=== PATIENT | female | born 1965 | race Caucasian/White ===

== ENCOUNTER 2019-10-22 10:26 | Day surgery (SDC) | payer OTHER ==
[~2019-10-22] VITALS: Ht 175.3 cm; Wt 76.7 kg
[~2019-10-22 10:26] MED LIST: CETI10CH PO; COQ-100C5 PO; MAGN200T PO; MONT10TA4 PO; NS 1,000 ML IV ONE; OMEP1CAP73 PO; ROSU40TA4 PO; SERT-138 PO; SM HTAB3 PO
[2019-10-22] MEDS ORDERED: propofoL 200 MG/20 ML VIAL As Ordered ONE ×2 (12:05→12:13)
[2019-10-22] MEDS ORDERED: LIDOCAINE 2% INJ 100 MG/5 ML SDV (FOR ANES.) As Ordered ONE ×2 (12:05→12:20)
--- NOTE | 2019-10-22 12:26 | ROOR ---
Patient Name: Jessenia Baker Procedure Date: 10/22/2019 12:03 PM Date of : 1965 Age: 54 Room: [facility] Gender: Female Note Status: Finalized Procedure: Total Colonoscopy to Cecum Indications: Colon cancer screening in patient at increased risk: Colorectal cancer in mother, Last colonoscopy: 2014 Providers: Jose Camarillo MD Referring MD: Bladimir Keller Do, LISS LEIJA MD Requesting Provider: Medicines: Monitored Anesthesia Care Complications: No immediate complications. Procedure: Pre-Anesthesia Assessment: - The heart rate, respiratory rate, oxygen saturations, blood pressure, adequacy of pulmonary ventilation, and response to care were monitored throughout the procedure. The Colonoscope was introduced through the anus and advanced to the cecum, identified by appendiceal orifice and ileocecal valve. The colonoscopy was performed without difficulty. The patient tolerated the procedure well. The quality of the bowel preparation was excellent. Findings: The perianal and digital rectal examinations were normal. Non-bleeding internal hemorrhoids were found during retroflexion. The hemorrhoids were small and Grade I (internal hemorrhoids that do not prolapse). Scattered small-mouthed diverticula were found in the recto-sigmoid colon, sigmoid colon and descending colon. The exam was otherwise without abnormality on direct and retroflexion views. Impression: - Non-bleeding internal hemorrhoids. - Diverticulosis in the recto-sigmoid colon, in the sigmoid colon and in the descending colon. - The examination was otherwise normal on direct and retroflexion views. - No specimens collected. - The exam was otherwise normal to the cecum. Recommendation: - Patient has a contact number available for emergencies. The signs and symptoms of potential delayed complications were discussed with the patient. Return to normal activities tomorrow. Written discharge instructions were provided to the patient. - High fiber diet. - Discharge patient to home. - Continue present medications. - Repeat colonoscopy in 5 years for screening purposes. - Return to referring physician. - The findings and recommendations were discussed with the patient's family. Jose Camarillo MD Jose Camarillo MD 10/22/2019 12:26:20 PM Electronically signed by Jose Camarillo MD Number of Addenda: 0 Note Initiated On: 10/22/2019 12:03 PM Estimated Blood Loss: Estimated blood loss: none.
[2019-10-22 12:50] VITALS: BP 165/94
== END 2019-10-22 13:06 | disposition home or self-care (01) ==
LOC: M OPP 10:26
PROVIDERS: ATTEND Internal Medicine Gastroenterology
DX: Z12.11 Encounter for screening for malignant neoplasm of colon (principal); Z80.0 Family history of malignant neoplasm of digestive organs; K64.0 First degree hemorrhoids; K57.30 Diverticulosis of large intestine without perforation or abscess without bleeding; I10 Essential (primary) hypertension; Z79.899 Other long term (current) drug therapy

== ENCOUNTER → 2020-03-25 | Outpatient (REF) | payer OTHER ==
[~2020-03-25] MED LIST changes: -NS 1,000 ML IV ONE
== END ==
LOC: M LAB REF 08:30
PROVIDERS: ATTEND Physician Assistant Medical
DX: Z11.59 Encounter for screening for other viral diseases (principal)

== ENCOUNTER → 2020-09-02 | Outpatient (CLI) | payer OTHER ==
[~2020-09-02] MED LIST changes: +MONT10TA10 PO; -MONT10TA4 PO
--- NOTE | 2020-09-02 09:40 | REPMRS ---
Patient History The patient states she has not had a clinical breast exam in over a year. Patient is postmenopausal. Family history of colorectal cancer under age 50 in mother. Digital Woman Screen Mammo: September 02, 2020 - Exam #: [id number] Bilateral CC and MLO view(s) were taken. Technologist: Mary Jama, Technologist Prior study comparison: 2016, bilateral digital mammo screening bilat, performed at [facility]. December 06, 2014, bilateral digital mammo screening bilat, performed at [facility]. October 13, 2012, bilateral digital mammo screening bilat, performed at [facility]. FINDINGS: There are scattered fibroglandular densities. The Volpara volumetric breast density category is:B. There has been no change in the appearance of the mammogram from the prior studies. There is a mild amount of scattered fibroglandular density which is fairly symmetric. There is no interval development of dominant mass, architectural distortion, or grouped microcalcification suggestive of malignancy. 3-D tomosynthesis shows no additional findings. Assessment: BI-RADS/ACR category 2 mammogram. Benign Findings. Recommendation Routine screening mammogram of both breasts in 1 year. This patient's [facility] Lifetime Breast Cancer RIsk is estimated at 8.0 %. This mammogram was interpreted with the aid of an FDA-approved computer-aided dectection system. Electronically Signed By: Evaristo Wynn MD 09/02/20 0939
== END ==
LOC: M WHC 07:50
PROVIDERS: ATTEND Family Medicine
DX: Z12.31 Encounter for screening mammogram for malignant neoplasm of breast (principal); Z80.0 Family history of malignant neoplasm of digestive organs